=== PATIENT | male | born 1930 | race Caucasian/White ===

== ENCOUNTER → 2017-07-09 | Outpatient (CLI) | payer MEDICARE ==
[2017-07-09 11:34] LABS: EKG EKG PERFORMED
[2017-07-09 11:45] LABS: Appearance,Urine Clear (Clear); Bilirubin,Urine Negative (Negative); Glucose,Urine (UA) Negative (Negative); Ketones,Urine Negative (Negative); Leukocyte Esterase,Urine Negative (Negative); Nitrite,Urine Negative (Negative); Protein,Urine Negative (Negative); Specific Gravity,Urine 1.014 (1.001-1.035); UA Billing (MACRO vs. MICRO) CHEM; Urobilinogen,Urine <2.0 mg/dL (<2.0)
[2017-07-09 11:46] LABS: CHCM 32.7; HCT 42.1 % (39.0-53.0); HDW 2.23; HGB 13.6 gm/dL (13.0-17.5); MCH 30.8 pg (25.0-35.0); MCHC 32.3 g/dL (31.0-37.0); MCV 95.3 fL (80.0-100.0); Mean Platelet Volume 7.4; RBC 4.42 m/uL (4.30-5.90); RDW 12.7 % (11.5-15.5); WBC 6.8 k/uL (3.8-10.6)
[2017-07-09 11:59] LABS: ALT 24 U/L (21-72); AST 20 U/L (17-59); Alkaline Phosphatase 81 U/L (38-126); Anion Gap 11 mmol/L; Blood Urea Nitrogen 20 mg/dL (9-20); Calcium 9.5 mg/dL (8.4-10.2); Carbon Dioxide 26 mmol/L (22-30); Chloride 103 mmol/L (98-107); Glucose 134 mg/dL (74-99); Non-African American GFR(MDRD) 52 (>60 ml/min/1.73 sqM); Potassium 4.3 mmol/L (3.5-5.1); Sodium 140 mmol/L (137-145); Total Bilirubin 0.6 mg/dL (0.2-1.3)
[2017-07-09 12:26] LABS: INR 1.1 (<1.2); Partial Thromboplastin Time 25.2 sec (22.0-30.0); Prothrombin Time 11.1 sec (9.0-12.0)
== END | disposition home or self-care (01) ==
LOC: LABPAT 10:54
PROVIDERS: ATTEND Orthopaedic Surgery
DX: Z01.810 Encounter for preprocedural cardiovascular examination (principal); Z01.812 Encounter for preprocedural laboratory examination
CPT/HCPCS: 80053; 81003; 85027; 85610; 85730; 87070; 93005

== ENCOUNTER 2018-06-11 10:45 | Inpatient (IN) | payer MEDICARE ==
[2018-06-11] MEDS ORDERED: SODIUM CHLORIDE 0.9% 500 ML 500 ML IV STA (11:34)
--- NOTE | 2018-06-11 11:43 | ED ---
General Adult HPI - General Chief complaint: Syncope Stated complaint: near syncope Time Seen by Provider: 06/11/18 11:10 Source: patient, RN notes reviewed Mode of arrival: EMS Limitations: no limitations - History of Present Illness Initial comments: This is an 87-year-old male who presents emergency Department for generalized weakness per patient states he was sitting at the table got up after eating and became very weak and he needed to hold onto the counter. Patient states he sat down and felt better and he got up again and felt weak like he was given a fall over and he slid slowly to the ground without injury. Patient states he got in the ambulance and started feeling better immediately and currently he feels back to his baseline. Patient states once he got to the emergency department large bowel movement and has no complaints at this time. At no time did patient have any shortness of breath difficulty breathing or chest pain. Patient denies any palpitation. Patient denies any recent fever chills or cough. Patient denies any headache patient denies numbness weakness. Patient denies abdominal pain patient denies nausea vomiting diarrhea. - Related Data Home Medications Medication Instructions Recorded Confirmed Aspirin EC [Ecotrin] 81 mg PO HS 02/03/15 06/11/18 Furosemide [Lasix] 20 mg PO DAILY 02/03/15 06/11/18 Ranitidine HCl [Zantac] 150 mg PO BID 02/03/15 06/11/18 Levothyroxine Sodium [Synthroid] 125 mcg PO DAILY 07/17/17 06/11/18 Verapamil HCl [Verapamil ER] 240 mg PO BID 07/17/17 06/11/18 Allergies Allergy/AdvReac Type Severity Reaction Status Date / Time No Known Allergies Allergy Verified 06/11/18 11:40 Review of Systems ROS Statement: Those systems with pertinent positive or pertinent negative responses have been documented in the HPI. ROS Other: All systems not noted in ROS Statement are negative. Past Medical History Past Medical History: GERD/Reflux, Hyperlipidemia, Hypertension, Osteoarthritis (OA), Prostate Disorder, Thyroid Disorder Additional Past Medical History / Comment(s): hx prostate cancer, hx skin cancer History of Any Multi-Drug Resistant Organisms: None Reported Past Surgical History: Prostate Surgery, Tonsillectomy Additional Past Surgical History / Comment(s): skin cancer removed from back, shelley cataracts Past Anesthesia/Blood Transfusion Reactions: No Reported Reaction Past Psychological History: No Psychological Hx Reported Smoking Status: Never smoker Past Alcohol Use History: Occasional Past Drug Use History: None Reported - Past Family History Mother Family Medical History: No Reported History General Exam - General Exam Comments Initial Comments: GENERAL: Patient is well-developed and well-nourished. Patient is nontoxic and well- hydrated and is in no acute distress. ENT: Neck is soft and supple. No significant lymphadenopathy is noted. Oropharynx is clear. Moist mucous membranes. Neck has full range of motion without eliciting any pain. EYES: The sclera were anicteric and conjunctiva were pink and moist. Extraocular movements were intact and pupils were equal round and reactive to light. Eyelids were unremarkable. PULMONARY: Unlabored respirations. Good breath sounds bilaterally. No audible rales rhonchi or wheezing was noted. CARDIOVASCULAR: There is a regular rate and rhythm without any murmurs gallops or rubs. ABDOMEN: Soft and nontender with normal bowel sounds. No palpable organomegaly was noted. There is no palpable pulsatile mass. SKIN: Skin is clear with no lesions or rashes and otherwise unremarkable. NEUROLOGIC: Patient is alert and oriented x3. Cranial nerves II through XII are grossly intact. Motor and sensory are also intact. Normal speech, volume and content. Symmetrical smile. MUSCULOSKELETAL: Normal extremities with adequate strength and full range of motion. LYMPHATICS: No significant lymphadenopathy is noted PSYCHIATRIC: Normal psychiatric evaluation. Normal interpersonal interactions appears functionally intact in deals appropriately with others. No signs of depression. No signs of anxiety. Limitations: no limitations Course Vital Signs 06/11/18 06/11/18 11:09 12:34 Temperature 98.8 F Pulse Rate 86 Respiratory 18 Rate Blood Pressure 136/74 Blood Pressure 134/93 [Right Arm Sitting] Blood Pressure 136/83 [Right Arm Standing] Blood Pressure 139/86 [Right Arm Supine] O2 Sat by Pulse 94 L Oximetry Medical Decision Making - Medical Decision Making EKG shows sinus rhythm at 90 bpm NC interval is 342 QRS is 94 QT interval 356 QT intervals 435. Patient's EKG shows no ST segment elevation or depression or T wave abnormalities are noted. Patient's troponin was elevated so I started the patient on heparin gave the patient Nitropaste and gave the patient aspirin. I spoke with Dr. Milton and he agreed to admit the patient admitted the patient I consult cardiology I spoke with cardiology and they were in agreement with the current plan. - Lab Data Result diagrams: 06/11/18 12:20 06/11/18 12:20 Lab Results 06/11/18 06/11/18 06/11/18 Range/Units 12:20 12:20 12:20 WBC 7.4 (3.8-10.6) k/uL RBC 4.52 (4.30-5.90) m/uL Hgb 13.9 (13.0-17.5) gm/dL Hct 42.1 (39.0-53.0) % MCV 93.1 (80.0-100.0) fL MCH 30.7 (25.0-35.0) pg MCHC 32.9 (31.0-37.0) g/dL RDW 13.1 (11.5-15.5) % Plt Count 164 (150-450) k/uL Neutrophils % 78 % Lymphocytes % 14 % Monocytes % 6 % Eosinophils % 1 % Basophils % 1 % Neutrophils # 5.8 (1.3-7.7) k/uL Lymphocytes # 1.1 (1.0-4.8) k/uL Monocytes # 0.4 (0-1.0) k/uL Eosinophils # 0.1 (0-0.7) k/uL Basophils # 0.0 (0-0.2) k/uL PT (9.0-12.0) sec INR (<1.2) APTT (22.0-30.0) sec Sodium 141 (137-145) mmol/L Potassium 4.3 (3.5-5.1) mmol/L Chloride 104 (98-107) mmol/L Carbon Dioxide 28 (22-30) mmol/L Anion Gap 9 mmol/L BUN 18 (9-20) mg/dL Creatinine 1.23 (0.66-1.25) mg/dL Est GFR (CKD-EPI)AfAm 61 (>60 ml/min/1.73 sqM) Est GFR (CKD-EPI)NonAf 53 (>60 ml/min/1.73 sqM) Glucose 147 H (74-99) mg/dL Calcium 9.2 (8.4-10.2) mg/dL Magnesium 2.2 (1.6-2.3) mg/dL Total Bilirubin 0.6 (0.2-1.3) mg/dL AST 23 (17-59) U/L ALT 16 L (21-72) U/L Alkaline Phosphatase 78 (38-126) U/L Total Creatine Kinase 67 (55-170) U/L CK-MB (CK-2) 2.0 (0.0-2.4) ng/mL CK-MB (CK-2) Rel Index 3.0 Troponin I 0.270 H* (0.000-0.034) ng/mL Total Protein 7.2 (6.3-8.2) g/dL Albumin 3.9 (3.5-5.0) g/dL 06/11/18 Range/Units 12:20 WBC (3.8-10.6) k/uL RBC (4.30-5.90) m/uL Hgb (13.0-17.5) gm/dL Hct (39.0-53.0) % MCV (80.0-100.0) fL MCH (25.0-35.0) pg MCHC (31.0-37.0) g/dL RDW (11.5-15.5) % Plt Count (150-450) k/uL Neutrophils % % Lymphocytes % % Monocytes % % Eosinophils % % Basophils % % Neutrophils # (1.3-7.7) k/uL Lymphocytes # (1.0-4.8) k/uL Monocytes # (0-1.0) k/uL Eosinophils # (0-0.7) k/uL Basophils # (0-0.2) k/uL PT 10.7 (9.0-12.0) sec INR 1.1 (<1.2) APTT 26.5 (22.0-30.0) sec Sodium (137-145) mmol/L Potassium (3.5-5.1) mmol/L Chloride (98-107) mmol/L Carbon Dioxide (22-30) mmol/L Anion Gap mmol/L BUN (9-20) mg/dL Creatinine (0.66-1.25) mg/dL Est GFR (CKD-EPI)AfAm (>60 ml/min/1.73 sqM) Est GFR (CKD-EPI)NonAf (>60 ml/min/1.73 sqM) Glucose (74-99) mg/dL Calcium (8.4-10.2) mg/dL Magnesium (1.6-2.3) mg/dL Total Bilirubin (0.2-1.3) mg/dL AST (17-59) U/L ALT (21-72) U/L Alkaline Phosphatase (38-126) U/L Total Creatine Kinase (55-170) U/L CK-MB (CK-2) (0.0-2.4) ng/mL CK-MB (CK-2) Rel Index Troponin I (0.000-0.034) ng/mL Total Protein (6.3-8.2) g/dL Albumin (3.5-5.0) g/dL Critical Care Time Critical Care Time: Yes Total Critical Care Time: 35 Disposition Clinical Impression: Near syncope, Non-STEMI (non-ST elevated myocardial infarction) Disposition: ADMITTED IP TO THIS HOSP Referrals: Aly Colmenares MD [Primary Care Provider] - 1-2 days Time of Disposition: 13:58
[2018-06-11 12:35] LABS: Basophils % (A) 1 %; Eosinophils # (A) 0.1 k/uL (0-0.7); Eosinophils % (A) 1 %; HCT 42.1 % (39.0-53.0); HGB 13.9 gm/dL (13.0-17.5); Lymphocytes # (A) 1.1 k/uL (1.0-4.8); Lymphocytes % (A) 14 %; MCH 30.7 pg (25.0-35.0); MCHC 32.9 g/dL (31.0-37.0); MCV 93.1 fL (80.0-100.0); Mean Platelet Volume 7.6; Monocytes # (A) 0.4 k/uL (0-1.0); Monocytes % (A) 6 %; Neutrophils # (A) 5.8 k/uL (1.3-7.7); Neutrophils % (A) 78 %; Platelet Count 164 k/uL (150-450); RBC 4.52 m/uL (4.30-5.90); RDW 13.1 % (11.5-15.5); WBC 7.4 k/uL (3.8-10.6)
[2018-06-11 12:43] LABS: Albumin 3.9 g/dL (3.5-5.0); Calcium 9.2 mg/dL (8.4-10.2); Magnesium 2.2 mg/dL (1.6-2.3); Potassium 4.3 mmol/L (3.5-5.1); Total Bilirubin 0.6 mg/dL (0.2-1.3); Total Protein 7.2 g/dL (6.3-8.2)
--- NOTE | 2018-06-11 12:56 | XR ---
EXAMINATION TYPE: XR chest 2V DATE OF EXAM: 06/11/2018 COMPARISON: 02/03/2015 HISTORY: Dizziness, chest pain and syncope TECHNIQUE: Frontal and lateral views of the chest are obtained. FINDINGS: There is no focal air space opacity, pleural effusion, or pneumothorax seen. The cardiac silhouette size is within normal limits. The osseous structures are intact. There is biapical pleur al-parenchymal thickening and biapical lucency suggesting mild emphysematous change. Mild bilateral g lenohumeral arthropathy is also seen. IMPRESSION: No acute cardiopulmonary process.
[2018-06-11 13:02] LABS: INR 1.1 (<1.2); Partial Thromboplastin Time 26.5 sec (22.0-30.0); Prothrombin Time 10.7 sec (9.0-12.0)
[2018-06-11 13:25] LABS: Troponin I 0.27 ng/mL (0.000-0.034)
[2018-06-11] MEDS ORDERED: HEPARIN SODIUM,PORCINE 5,000 UNIT/ML 1 ML VIAL IV ONE (13:52)
[2018-06-11] MEDS ORDERED: NITROGLYCERIN OINT 1 INCH/GM PACKET TOPICAL STA (13:53)
[2018-06-11] MEDS ORDERED: ASPIRIN 81 MG PO STA (13:53)
[2018-06-11] MEDS ORDERED: NITROGLYCERIN SL TABS 0.4 MG TAB SUBLINGUAL PRN (13:58)
[2018-06-11] MEDS ORDERED: HEPARIN SOD,PORK IN 0.45% NACL 25,000 UNIT in 0.45% NACL 1 500ML.BAG IV SCH (14:00)
--- NOTE | 2018-06-11 15:37 | P.CRDCN ---
History of Present Illness Consult date: 06/11/18 Requesting physician: Aly Colmenares Consult reason: sycope Chief complaint: syncope History of present illness: This is a pleasant 87-year-old gentleman with history of hypertension , hyperlipidemia, nonsmoker,family history of premature coronary artery disease in his brother who has a coronary stent, resented to the hospital following a syncopal episode. According to the patient, he was standing at the sink, holding onto it tightly because he was extremely lightheaded and felt as though he would pass out. According to the , at that same time he was notably short of breath as well. Denies having any chest discomfort at the time. Shortly thereafter this patient did fall down to the ground, his was helping him and they actually both fell down to the ground. She states that when he landed his eyes were closed and he was unresponsive for a period of time.chest x-ray did not reveal any acute cardiopulmonary process.EKG shows a normal sinus rhythm with first-degree AV block and occasional PVC, nonspecific ST-T wave changes.Blood pressure on arrival 136/70, orthostatics were obtained which came back to be negative. Heart rate in the 80s, temperature 98.8, he is 94% on room air.White blood cell count 7.4, hemoglobin 13.9, platelet count 164. Sodium 141, potassium 4.3, BUN 18, creatinine 1.2.troponin 0.270.at the time of my examination, patient feels well, denies any chest pain, no difficulty in breathing, no dizziness or lightheadedness. Patient states overall he's physically active, has not taken any recent long trips and has not had any recent surgeries. Past Medical History Past Medical History: GERD/Reflux, Hyperlipidemia, Hypertension, Osteoarthritis (OA), Prostate Disorder, Thyroid Disorder Additional Past Medical History / Comment(s): hx prostate cancer, hx skin cancer. pt stated has has a pne vaccine,shingles vaccine and hepatitis A vaccine but not sure of dates,racebook writer not abnle to verify date at time of admit. History of Any Multi-Drug Resistant Organisms: None Reported Past Surgical History: Prostate Surgery, Tonsillectomy Additional Past Surgical History / Comment(s): skin cancer removed from back, shelley cataracts removed-lens implants. prostatectomy,total lt hip arthroplasty Past Anesthesia/Blood Transfusion Reactions: No Reported Reaction Smoking Status: Never smoker - Past Family History Mother Family Medical History: Osteoarthritis (OA) Additional Family Medical History / Comment(s): at age 92"old age" Father Additional Family Medical History / Comment(s): dad was an alcoholic he left home when pt was only 3 and a half years old Medications and Allergies Home Medications Medication Instructions Recorded Confirmed Type Aspirin EC [Ecotrin] 81 mg PO HS 02/03/15 06/11/18 History Furosemide [Lasix] 20 mg PO DAILY 02/03/15 06/11/18 History Ranitidine HCl [Zantac] 150 mg PO BID 02/03/15 06/11/18 History Levothyroxine Sodium [Synthroid] 125 mcg PO DAILY 07/17/17 06/11/18 History Verapamil HCl [Verapamil ER] 240 mg PO BID 07/17/17 06/11/18 History Allergies Allergy/AdvReac Type Severity Reaction Status Date / Time No Known Allergies Allergy Verified 06/11/18 11:40 Physical Exam Vitals: Vital Signs Temp Pulse Resp BP BP BP BP 06/11/18 12:34 134/93 136/83 139/86 06/11/18 11:09 98.8 F 86 18 136/74 Pulse Ox 06/11/18 12:34 06/11/18 11:09 94 L Intake and Output 06/11/18 06/11/18 06/11/18 06:59 14:59 22:59 Other: Weight 79.379 kg PHYSICAL EXAMINATION: GENERAL:87-year-old gentleman in no acute distress at the time of my examination HEENT: Head is atraumatic, normocephalic. Pupils equal, round. Sclera anicteric. Conjunctiva are clear. Mucous membranes of the mouth are moist. Neck is supple. There is no elevated jugular venous pressure.no carotid bruit is heard. HEART EXAMINATION: [Heart S1, S2 systolic murmur is heard.] CHEST EXAMINATION:[ Lungs are clear to auscultation and precussion. No chest wall tenderness is noted on palpation or with deep breathing.] ABDOMEN: [ Soft, nontender. Bowel sounds are heard. No organomegaly noted]. EXTREMITIES:[ 2+ peripheral pulses with no evidence of peripheral edema and no calf tenderness noted]. NEUROLOGIC [patient is awake, alert and oriented X3.] . Results 06/11/18 12:20 06/11/18 12:20 Cardiac Enzymes 06/11/18 06/11/18 Range/Units 12:20 12:20 AST 23 (17-59) U/L CK-MB (CK-2) 2.0 (0.0-2.4) ng/mL Troponin I 0.270 H* (0.000-0.034) ng/mL Coagulation 06/11/18 Range/Units 12:20 PT 10.7 (9.0-12.0) sec APTT 26.5 (22.0-30.0) sec CBC 06/11/18 Range/Units 12:20 WBC 7.4 (3.8-10.6) k/uL RBC 4.52 (4.30-5.90) m/uL Hgb 13.9 (13.0-17.5) gm/dL Hct 42.1 (39.0-53.0) % Plt Count 164 (150-450) k/uL Comprehensive Metabolic Panel 06/11/18 Range/Units 12:20 Sodium 141 (137-145) mmol/L Potassium 4.3 (3.5-5.1) mmol/L Chloride 104 (98-107) mmol/L Carbon Dioxide 28 (22-30) mmol/L BUN 18 (9-20) mg/dL Creatinine 1.23 (0.66-1.25) mg/dL Glucose 147 H (74-99) mg/dL Calcium 9.2 (8.4-10.2) mg/dL AST 23 (17-59) U/L ALT 16 L (21-72) U/L Alkaline Phosphatase 78 (38-126) U/L Total Protein 7.2 (6.3-8.2) g/dL Albumin 3.9 (3.5-5.0) g/dL Current Medications Generic Name Dose Route Start Last Admin Trade Name Freq PRN Reason Stop Dose Admin Aspirin 325 mg 06/12/18 09:00 Aspirin PO DAILY [facility] Heparin Sodium/Sodium Chloride 500 mls @ 19.05 mls/hr 06/11/18 14:00 25,000 unit/ Sodium Chloride IV .Q24H [facility] Protocol 12 UNITS/KG/HR Nitroglycerin 1 inch 06/11/18 18:00 Nitro-Bid Oint TOPICAL Q6HR [facility] Nitroglycerin 0.4 mg 06/11/18 13:58 Nitrostat SUBLINGUAL Q5M PRN Chest Pain Intake and Output 06/11/18 06/11/18 06/11/18 06:59 14:59 22:59 Other: Weight 79.379 kg Patient Weight 06/12/18 06:59 Weight 79.379 kg 06/11/18 12:20 06/11/18 12:20 EKG Interpretations (text) EKG shows normal sinus rhythm with long first-degree AV block and occasional PVC. Assessment and Plan Plan: Assessment and plan #1 syncope, rule out cardiac causes. EKG shows normal sinus rhythm with long first-degree AV block. Occasional PVC. #2 hypertension #3 hyperlipidemia #4 family history of premature coronary artery disease in his brother #5 hypothyroidism #6 abnormal troponin Plan We'll check a thyroid level, obtain echocardiogram with Doppler study. Continue to monitor orthostatics. Obtain two subsequent troponins. Continue to monitor for any significant tachycardia or bradycardia arrhythmias. We will also decrease the dose of verapamil. Obtain d-dimer.Further recommendations to follow. DNP note has been reviewed, I agree with a documented findings and plan of care. Patient was seen and examined.
[2018-06-11] MEDS: NITROGLYCERIN OINT 1 INCH/GM PACKET TOPICAL SCH (17:20)
[2018-06-11 19:19] LABS: Creatine Kinase MB 2.8 ng/mL (0.0-2.4)
[2018-06-11 19:20] LABS: Troponin I 0.675 ng/mL (0.000-0.034)
--- NOTE | 2018-06-11 19:55 | CT ---
EXAMINATION TYPE: CT chest angio for PE DATE OF EXAM: 06/11/2018 COMPARISON: None. HISTORY: Elevated d-dimer. CT DLP: 190.7 mGycm. Automated exposure control for dose reduction was used. CONTRAST: CT Chest for pulmonary embolism performed with with IV Contrast, patient injected with 80 m L of Isovue 370. FINDINGS: MEDIASTINUM: There are large bilateral numerous filling defects throughout the right and left pulmona ry arterial lobar and segmental branches, consistent with large bilateral ovarian emboli. The right v entricle is larger in volume than the left ventricle, suggesting right heart strain. 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 Mi ld cardiomegaly is noted. No pericardial effusion. LUNGS AND PLEURAL SPACES AND AIRWAYS: The lungs show nonspecific multifocal subcentimeter pulmonary n odules and biapical ill-defined added opacities. There are no available CT studies with which to comp are. These pulmonary findings can be further characterized using an outside comparison CT is availabl e. There is no pulmonary edema or candidate for pneumonia. No major atelectasis. Pleural spaces are n egative. Airways are clear. BONES AND EXTRATHORACIC SOFT TISSUES: No additional significant abnormality is seen. IMPRESSION: 1) LARGE BILATERAL PULMONARY EMBOLI WITH EVIDENCE OF RIGHT HEART STRAIN. Results communicated at 7:4 5 PM with the patient's nurse Elise and Dr. Landin. 2) Ascending Aorta Aneurysmal Dilation. 3) Multifocal Scattered Pulmonary Findings, Appearing Chronic.
[2018-06-11] MEDS ORDERED: RIVAROXABAN 15 MG TAB PO SCH (20:00)
[2018-06-11] MEDS: HEPARIN SOD,PORK IN 0.45% NACL 25,000 UNIT in 0.45% NACL 1 500ML.BAG IV SCH (20:20)
[2018-06-11 23:25] LABS: Cholesterol 202 mg/dL (<200); HDL Cholesterol 54 mg/dL (40-60); LDL Cholesterol,Calculated 119 mg/dL (0-99); Triglycerides 147 mg/dL (<150)
[2018-06-12 01:25] LABS: Creatine Kinase MB 2.1 ng/mL (0.0-2.4)
[2018-06-12 01:34] LABS: Troponin I 0.37 ng/mL (0.000-0.034)
[2018-06-12] MEDS: NITROGLYCERIN OINT 1 INCH/GM PACKET TOPICAL SCH ×2 (02:50→06:04)
[2018-06-12] MEDS ORDERED: HEPARIN SODIUM,PORCINE 5,000 UNIT/ML 1 ML VIAL IV PRN (08:49)
[2018-06-12] MEDS: ASPIRIN 325 MG TAB PO SCH (08:58)
--- NOTE | 2018-06-12 08:58 | US ---
"EXAMINATION TYPE: US venous doppler duplex LE DATE OF EXAM: 06/12/2018 8:31 AM COMPARISON: NONE CLINICAL HISTORY: r/o dvt. Patient with known pulmonary embolism. SIDE PERFORMED: Bilateral TECHNIQUE: The lower extremity deep venous system is examined utilizing real time linear array sonog jackie with graded compression, doppler sonography and color-flow sonography. VESSELS IMAGED: External Iliac Vein (EIV) Common Femoral Vein Deep Femoral Vein Greater Saphenous Vein * Femoral Vein Popliteal Vein Small Saphenous Vein * Proximal Calf Veins (* superficial vessels) 06/12/18 Pt has PE bilaterally and is being treated currently with heparin drip. Right Leg: Positive for DVT Left Leg: Negative for DVT There are low-level internal echoes in the popliteal vein on the right, lack of complete compressibil ity with some possible minimal flow on color Doppler. IMPRESSION: Findings compatible with deep venous thrombosis right popliteal vein. A Yellow level critical message alert has been initiated for Aly Colmenares MD via the [facility] | Critical Results System on 06/12/2018 8:55 AM. This message alert has been sent to Shyann Colmenares MD via the preferences provided by the clinician for the receipt of Radiology Critical Findings. Message ID [id number]."
--- NOTE | 2018-06-12 11:01 | ECHOF ---
Referral Reason:abn trop MEASUREMENTS -------- HEIGHT: 177.8 cm WEIGHT: 79.4 kg BP: 134/93 RVIDd: 2.9 cm (< 3.3) IVSd: 0.8 cm (0.6 - 1.1) LVIDd: 3.9 cm (3.9 - 5.3) LVPWd: 1.1 cm (0.6 - 1.1) IVSs: 1.3 cm LVIDs: 3.0 cm LVPWs: 1.2 cm LAESV Index (A-L): 17.59 ml/m Ao Diam: 3.5 cm (2.0 - 3.7) AV Cusp: 1.4 cm (1.5 - 2.6) LA Diam: 3.4 cm (2.7 - 3.8) MV E Ok: 1.38 m/s MV DecT: 167 ms MV A Ok: 0.81 m/s MV E/A Ratio: 1.71 AR PHT: 624 ms RAP: 5.00 mmHg RVSP: 35.58 mmHg FINDINGS -------- Atrial fibrillation. This was a technically good study. The left ventricular size is normal. Left ventricular wall thickness is normal. Overall left vent ricular systolic function is low-normal with, an EF between 50 - 55 %. . The right ventricle is mild to moderately enlarged. Normal LA size by volume 22+/-6 ml/m2. The right atrium is mildly enlarged. Aortic valve is trileaflet and is mildly thickened. There is mild aortic regurgitation. There is no evidence of aortic stenosis. The mitral valve leaflets are mildly thickened. Mild mitral annular calcification present. Mild m itral regurgitation is present. Mild tricuspid regurgitation present. There is borderline pulmonary hypertension. The right ventr icular systolic pressure, as measured by Doppler, is 35.58mmHg. The pulmonic valve was not well visualized. The aortic root size is normal. Normal inferior vena cava with normal inspiratory collapse consistent with estimated right atrial pre ssure of 5 mmHg. There is no pericardial effusion. CONCLUSIONS -------- 1. Atrial fibrillation. 2. This was a technically good study. 3. The left ventricular size is normal. 4. Left ventricular wall thickness is normal. 5. Overall left ventricular systolic function is low-normal with, an EF between 50 - 55 %. 6. The right ventricle is mild to moderately enlarged. 7. Normal LA size by volume 22+/-6 ml/m2. 8. The right atrium is mildly enlarged. 9. Aortic valve is trileaflet and is mildly thickened. 10. There is mild aortic regurgitation. 11. The mitral valve leaflets are mildly thickened. 12. Mild mitral annular calcification present. 13. Mild mitral regurgitation is present. 14. Mild tricuspid regurgitation present. 15. There is borderline pulmonary hypertension. 16. The right ventricular systolic pressure, as measured by Doppler, is 35.58mmHg. 17. The pulmonic valve was not well visualized. 18. The aortic root size is normal. 19. There is no pericardial effusion. AUTOMATIC SCREWMAKER: Adolfo Mack RDCS
[2018-06-12] MEDS: HEPARIN SOD,PORK IN 0.45% NACL 25,000 UNIT in 0.45% NACL 1 500ML.BAG IV SCH (14:02)
--- NOTE | 2018-06-12 14:37 | P.PN ---
Subjective Progress Note Date: 06/12/18 Principal diagnosis: BiLateral pulmonary embolism This is a pleasant 87-year-old gentleman with history of hypertension , hyperlipidemia, nonsmoker,family history of premature coronary artery disease in his brother who has a coronary stent, resented to the hospital following a syncopal episode. According to the patient, he was standing at the sink, holding onto it tightly because he was extremely lightheaded and felt as though he would pass out. According to the , at that same time he was notably short of breath as well. Denies having any chest discomfort at the time. Shortly thereafter this patient did fall down to the ground, his was helping him and they actually both fell down to the ground. She states that when he landed his eyes were closed and he was unresponsive for a period of time.chest x-ray did not reveal any acute cardiopulmonary process.EKG shows a normal sinus rhythm with first-degree AV block and occasional PVC, nonspecific ST-T wave changes.Blood pressure on arrival 136/70, orthostatics were obtained which came back to be negative. Heart rate in the 80s, temperature 98.8, he is 94% on room air.White blood cell count 7.4, hemoglobin 13.9, platelet count 164. Sodium 141, potassium 4.3, BUN 18, creatinine 1.2.troponin 0.270.at the time of my examination, patient feels well, denies any chest pain, no difficulty in breathing, no dizziness or lightheadedness. Patient states overall he's physically active, has not taken any recent long trips and has not had any recent surgeries. 06/12/2018 D-dimer yesterday evening came back at 20.03. For that reason a CTA of the chest was performed which revealed large bilateral pulmonary emboli with evidence of right heart strain. Descending aorta aneurysmal dilated dictation noted. Venous duplex was ordered this morning, findings compatible with DVT in the right popliteal vein. Echocardiogram with Doppler study was performed which revealed an ejection fraction of 50-55%. Borderline pulmonary hypertension, RVSP measured at 35.5. No pericardial effusion. Blood pressure 104/60 with a heart rate in the 60s today, 98% on room air. Breathing is stable , he denies any chest discomfort, dizziness or lightheadedness today. He is noted on the monitor and first-degree heart block intermittently and winky block. He was also noted to have 1 pause of approximately 2 seconds noted on the monitor. Objective - Vital Signs Vital signs: Vital Signs Temp 97.4 F L 06/12/18 09:00 Pulse 54 L 06/12/18 09:00 Resp 16 06/12/18 09:00 BP 111/58 06/12/18 09:00 Pulse Ox 98 06/12/18 09:00 Intake & Output 06/11/18 06/12/18 06/12/18 18:59 06:59 18:59 Intake Total 559.044 490.613 Output Total 750 Balance -190.956 490.613 Weight 79.379 kg 76.5 kg Intake: Intake, IV Titration 79.044 250.613 Amount Heparin Sod,Pork in 0.45% 79.044 250.613 NaCl 25,000 unit In 0.45 % NaCl 1 500ml.bag @ 18 UNITS/KG/HR 28.57 mls/hr IV .[id number] [facility] Rx#: [id number] Oral 480 240 Output: Urine 750 Other: Voiding Method Toilet Urinal Diaper Incontinent # Voids 1 - Exam PHYSICAL EXAMINATION: GENERAL:87-year-old gentleman in no acute distress at the time of my examination HEENT: Head is atraumatic, normocephalic. Pupils equal, round. Sclera anicteric. Conjunctiva are clear. Mucous membranes of the mouth are moist. Neck is supple. There is no elevated jugular venous pressure.no carotid bruit is heard. HEART EXAMINATION: [Heart S1, S2 systolic murmur is heard.] CHEST EXAMINATION:[ Lungs are clear to auscultation and precussion. No chest wall tenderness is noted on palpation or with deep breathing.] ABDOMEN: [ Soft, nontender. Bowel sounds are heard. No organomegaly noted]. EXTREMITIES:[ 2+ peripheral pulses with no evidence of peripheral edema and no calf tenderness noted]. NEUROLOGIC [patient is awake, alert and oriented X3. - Labs CBC & Chem 7: 06/11/18 12:20 06/11/18 12:20 Labs: Abnormal Lab Results - Last 24 Hours (Table) 06/11/18 06/11/18 06/11/18 Range/Units 12:20 12:20 12:20 APTT (22.0-30.0) sec D-Dimer 20.03 H (<0.60) mg/L FEU Total Creatine Kinase (55-170) U/L CK-MB (CK-2) (0.0-2.4) ng/mL Troponin I 0.270 H* (0.000-0.034) ng/mL Cholesterol (<200) mg/dL LDL Cholesterol, Calc (0-99) mg/dL TSH 0.077 L (0.465-4.680) mIU/L 06/11/18 06/11/18 06/11/18 Range/Units 12:20 18:28 21:39 APTT 82.3 H (22.0-30.0) sec D-Dimer (<0.60) mg/L FEU Total Creatine Kinase (55-170) U/L CK-MB (CK-2) 2.8 H (0.0-2.4) ng/mL Troponin I 0.675 H* (0.000-0.034) ng/mL Cholesterol 202 H (<200) mg/dL LDL Cholesterol, Calc 119 H (0-99) mg/dL TSH (0.465-4.680) mIU/L 06/12/18 06/12/18 Range/Units 00:32 07:37 APTT 30.3 H (22.0-30.0) sec D-Dimer (<0.60) mg/L FEU Total Creatine Kinase 53 L (55-170) U/L CK-MB (CK-2) (0.0-2.4) ng/mL Troponin I 0.370 H* (0.000-0.034) ng/mL Cholesterol (<200) mg/dL LDL Cholesterol, Calc (0-99) mg/dL TSH (0.465-4.680) mIU/L Assessment and Plan Plan: Assessment and plan #1 syncope, evidence of significant bilateral pulmonary embolism and right ventricular heart strain. #2 hypertension #3 hyperlipidemia #4 family history of premature coronary artery disease in his brother #5 hypothyroidism #6 abnormal troponin #7 sinus bradycardia with first-degree AV block and intermittent second-degree type I. Plan Patient is currently on high-intensity heparin therapeutic PTT, he also has evidence of a DVT in the right popliteal vein. Echocardiogram with Doppler study revealed an RVSP of 35, normal ejection fraction. TSH 0.77. Patient has been instructed to remain on bedrest for the next 24 hours, we'll continue IV heparin at high intensity for 24-48 hours and then initiate oral anticoagulation. DNP note has been reviewed, I agree with a documented findings and plan of care. Patient was seen and examined.
[2018-06-13] MEDS: LEVOTHYROXINE 125 MCG TAB PO SCH (05:46)
[2018-06-13] MEDS: ASPIRIN 325 MG TAB PO SCH (07:58)
[2018-06-13] MEDS: FAMOTIDINE 20 MG TAB PO SCH (07:58)
[2018-06-13] MEDS: HEPARIN SOD,PORK IN 0.45% NACL 25,000 UNIT in 0.45% NACL 1 500ML.BAG IV SCH (10:27)
--- NOTE | 2018-06-13 11:00 | DS ---
DISCHARGE SUMMARY CHIEF COMPLAINT: Chest pain, shortness of breath. HISTORY OF PRESENT ILLNESS/PHYSICAL EXAM: Details of this man's history and physical can be found in the initial workup. LABORATORY STUDIES: While he was in a hospital, he had laboratory studies, details of which can be found in the laboratory section of his chart. COURSE IN HOSPITAL: After admission, he was placed on bedrest and started on intravenous fluids and was found on a CTA to have bilateral pulmonary emboli. Started on heparin. He was dyspneic for the first 24 - 48 hours, but this began to improve. It is felt he could be discharged on 06/13 and he will go home on Xarelto 15 mg twice a day for 21 days. He will be seen in the office in a day or two. Will resume his usual medications. FINAL DIAGNOSES: 1. Bilateral pulmonary emboli. 2. History of hypertension. 3. History of carcinoma of the prostate. OPERATIONS: None. CONSULTATIONS: Cardiology. He is improved. MMODL / IJN: [id number] /
--- NOTE | 2018-06-13 11:21 | P.PN ---
Subjective Progress Note Date: 06/13/18 Principal diagnosis: BiLateral pulmonary embolism This is a pleasant 87-year-old gentleman with history of hypertension , hyperlipidemia, nonsmoker,family history of premature coronary artery disease in his brother who has a coronary stent, resented to the hospital following a syncopal episode. According to the patient, he was standing at the sink, holding onto it tightly because he was extremely lightheaded and felt as though he would pass out. According to the , at that same time he was notably short of breath as well. Denies having any chest discomfort at the time. Shortly thereafter this patient did fall down to the ground, his was helping him and they actually both fell down to the ground. She states that when he landed his eyes were closed and he was unresponsive for a period of time.chest x-ray did not reveal any acute cardiopulmonary process.EKG shows a normal sinus rhythm with first-degree AV block and occasional PVC, nonspecific ST-T wave changes.Blood pressure on arrival 136/70, orthostatics were obtained which came back to be negative. Heart rate in the 80s, temperature 98.8, he is 94% on room air.White blood cell count 7.4, hemoglobin 13.9, platelet count 164. Sodium 141, potassium 4.3, BUN 18, creatinine 1.2.troponin 0.270.at the time of my examination, patient feels well, denies any chest pain, no difficulty in breathing, no dizziness or lightheadedness. Patient states overall he's physically active, has not taken any recent long trips and has not had any recent surgeries. 06/12/2018 D-dimer yesterday evening came back at 20.03. For that reason a CTA of the chest was performed which revealed large bilateral pulmonary emboli with evidence of right heart strain. Descending aorta aneurysmal dilated dictation noted. Venous duplex was ordered this morning, findings compatible with DVT in the right popliteal vein. Echocardiogram with Doppler study was performed which revealed an ejection fraction of 50-55%. Borderline pulmonary hypertension, RVSP measured at 35.5. No pericardial effusion. Blood pressure 104/60 with a heart rate in the 60s today, 98% on room air. Breathing is stable , he denies any chest discomfort, dizziness or lightheadedness today. He is noted on the monitor and first-degree heart block intermittently and winky block. He was also noted to have 1 pause of approximately 2 seconds noted on the monitor. 06/13/2018 Patient was seen and examined this morning, doing well, hemodynamically he is stable. Blood pressure 138/60 with a heart rate in the 60s, 97% on 2 L of oxygen. He has been on bedrest, this morning got up to the bathroom, walked back to the bed and was mildly short of breath. He was sitting up in a chair at the time of my examination. Continues to be on IV heparin. Was switched over to Xarelto this morning by primary care doctor. After noon today, we will have the patient up ambulating, monitoring his oxygen saturations closely. Plan on discharge home in 24 hours if stable. Objective - Vital Signs Vital signs: Vital Signs Temp 96.7 F L 06/13/18 07:59 Pulse 76 06/13/18 07:59 Resp 16 06/13/18 07:59 BP 158/73 06/13/18 07:59 Pulse Ox 98 06/13/18 07:59 Intake & Output 06/12/18 06/13/18 06/13/18 18:59 06:59 18:59 Intake Total 1188.101 672.907 240 Output Total 220 750 Balance 968.101 -77.093 240 Weight 77.1 kg Intake: Intake, IV Titration 468.101 192.907 Amount Heparin Sod,Pork in 0.45% 468.101 192.907 NaCl 25,000 unit In 0.45 % NaCl 1 500ml.bag @ 18 UNITS/KG/HR 28.57 mls/hr IV .[id number] [facility] Rx#: [id number] Oral 720 480 240 Output: Urine 220 750 Other: Voiding Method Toilet Urinal Diaper Incontinent # Voids 1 - Exam PHYSICAL EXAMINATION: GENERAL:87-year-old gentleman in no acute distress at the time of my examination HEENT: Head is atraumatic, normocephalic. Pupils equal, round. Sclera anicteric. Conjunctiva are clear. Mucous membranes of the mouth are moist. Neck is supple. There is no elevated jugular venous pressure.no carotid bruit is heard. HEART EXAMINATION: [Heart S1, S2 systolic murmur is heard.] CHEST EXAMINATION:[ Lungs are clear to auscultation and precussion. No chest wall tenderness is noted on palpation or with deep breathing.] ABDOMEN: [ Soft, nontender. Bowel sounds are heard. No organomegaly noted]. EXTREMITIES:[ 2+ peripheral pulses with no evidence of peripheral edema and no calf tenderness noted]. NEUROLOGIC [patient is awake, alert and oriented X3. - Labs CBC & Chem 7: 06/11/18 12:20 06/11/18 12:20 Labs: Abnormal Lab Results - Last 24 Hours (Table) 06/12/18 06/13/18 06/13/18 Range/Units 14:27 00:20 07:55 APTT >200.0 H* 177.3 H* 115.5 H* (22.0-30.0) sec Assessment and Plan Plan: Assessment and plan #1 syncope, evidence of significant bilateral pulmonary embolism and right ventricular heart strain. #2 hypertension #3 hyperlipidemia #4 family history of premature coronary artery disease in his brother #5 hypothyroidism #6 abnormal troponin #7 sinus bradycardia with first-degree AV block and intermittent second-degree type I. #8 right popliteal DVT Plan IV heparin has been discontinued this morning and patient was initiated on Xarelto per PE protocol by primary care. He has not yet been up ambulating, he' s been encouraged today to be up ambulating in the hallway, we will monitor his oxygen saturations closely. If stable he may be able to be discharged home in 24 hours if okay with the primary. DNP note has been reviewed, I agree with a documented findings and plan of care. Patient was seen and examined.
[2018-06-13] MEDS: RIVAROXABAN 15 MG TAB PO SCH (17:23)
--- NOTE | 2018-06-13 17:33 | HP ---
HISTORY AND PHYSICAL CHIEF COMPLAINT: Chest pain, shortness of breath. HISTORY OF PRESENT ILLNESS: This is another admission for this 87-year-old healthy white male. He has a history of mild hypertension and he had an open prostatectomy many many years ago without recurrence. He presented to the emergency room with some vague anterior chest pain and slightly elevated troponin and was admitted. He subsequently had a D-dimer obtained which was elevated and had a positive CTA with bilateral pulmonary emboli. REVIEW OF SYSTEMS: He has had no hemoptysis, chest pain, orthopnea, PND, swelling in either leg, etc. Past medical history, family history, and personal and social histories are unremarkable and noncontributory otherwise. He does not smoke. He has been noticing a little bit of shortness of breath working around the house. PHYSICAL EXAMINATION: Blood pressure is 138/85 with a pulse of 84, respirations of 34, and he is afebrile. In general he appeared to be well developed, well nourished, in no acute distress and very well preserved for his age. Head, ears, eyes, nose, mouth and throat were normal. Neck veins were not distended. Thyroid was not enlarged. Chest was clear. There were no rubs. Cardiac exam was normal sinus rhythm and there were no no murmurs or extra sounds. Abdomen was soft, nontender. Extremities were normal. There was no swelling in either leg and calves were soft and Homans negative. IMPRESSION: 1. Bilateral pulmonary emboli. 2. History of carcinoma of the prostate. 3. Hypertension. PLAN: 1. Bed rest. 2. IV fluids. 3. Anticoagulate. 4. Nasal oxygen. MMODL / IJN: [id number] /
[2018-06-14] MEDS: LEVOTHYROXINE 125 MCG TAB PO SCH (06:26)
[2018-06-14] MEDS: RIVAROXABAN 15 MG TAB PO SCH (06:26)
[2018-06-14 08:05] VITALS: TEMP 96.8
[2018-06-14] MEDS: FAMOTIDINE 20 MG TAB PO SCH (08:07)
[2018-06-14] MEDS: IOPAMIDOL-300 CONTRAST 30 ML VIAL (ORAL USE) PO PRN ×2 (08:30→09:37)
[2018-06-14] MEDS ORDERED: ASPIRIN 81 MG PO SCH (09:00)
[2018-06-14 09:55] LABS: Potassium 4.6 mmol/L (3.5-5.1)
--- NOTE | 2018-06-14 12:11 | CT ---
EXAMINATION TYPE: CT abdomen pelvis wo/w con DATE OF EXAM: 06/14/2018 COMPARISON: CTA 06/11/2018 INDICATION: Unprovoked Bilateral PE DLP: 1020 mGycm, Automated exposure control for dose reduction was used. CONTRAST: 100 mL of Isovue 300. Study performed with Oral Contrast TECHNIQUE: Axial images were obtained from above the diaphragm to the pubic rami in the axial plane a t 5 mm thick sections. Reconstructed images are reviewed on the computer in the coronal plane. FINDINGS: Limited CT sections are obtained the lung bases. Some compressive atelectasis is within the dependen t portions of the lung bases. Couple small nodules may be at the posterior right lung base likely a 0 .3 cm nodule, series 9 image 9 and a 0.4 cm nodule, series 9 image 1.. Note is made of contrast with in the distal esophagus during the delayed images. CT ABDOMEN: Liver: Normal Spleen: Normal Pancreas: Atrophic Adrenal glands: The adrenal glands are normal. Gallbladder: Normal Kidneys: No masses are evident. No hydronephrosis is present. No cysts are present. There is a 0.8 cm calcification without obstruction in the mid to inferior pole right kidney. Aorta: Vascular calcification is within the aorta. Inferior vena cava: Normal. CT PELVIS: Pelvis is limited due to beam hardening artifact from a left hip prosthesis. Loops of bowel within the abdomen and pelvis are normal. There are loops of bowel which are incom pletely distended or lack oral contrast limiting their evaluation. Scattered diverticuli are present throughout the colon Appendix: Not visualized. No suspicious inflammatory changes or dilated tubular structures are eviden t. Urinary bladder: Decompressed with limited evaluation Genitourinary structures: Prostate is unremarkable Osseous structures: No suspicious lytic or sclerotic lesions. Facet degenerative changes are through the lumbar spine. Degenerative disc changes are through the lumbar spine. IMPRESSIONS: 1. Nonobstructing right renal stone. 2. Gastroesophageal reflux. 3. Small nodules may be at the posterior right lung base. These were not as apparent on the CTA and m ay be related atelectasis. Follow-up can be performed
--- NOTE | 2018-06-14 12:33 | P.PN ---
Subjective Progress Note Date: 06/14/18 Principal diagnosis: BiLateral pulmonary embolism This is a pleasant 87-year-old gentleman with history of hypertension , hyperlipidemia, nonsmoker,family history of premature coronary artery disease in his brother who has a coronary stent, resented to the hospital following a syncopal episode. According to the patient, he was standing at the sink, holding onto it tightly because he was extremely lightheaded and felt as though he would pass out. According to the , at that same time he was notably short of breath as well. Denies having any chest discomfort at the time. Shortly thereafter this patient did fall down to the ground, his was helping him and they actually both fell down to the ground. She states that when he landed his eyes were closed and he was unresponsive for a period of time.chest x-ray did not reveal any acute cardiopulmonary process.EKG shows a normal sinus rhythm with first-degree AV block and occasional PVC, nonspecific ST-T wave changes.Blood pressure on arrival 136/70, orthostatics were obtained which came back to be negative. Heart rate in the 80s, temperature 98.8, he is 94% on room air.White blood cell count 7.4, hemoglobin 13.9, platelet count 164. Sodium 141, potassium 4.3, BUN 18, creatinine 1.2.troponin 0.270.at the time of my examination, patient feels well, denies any chest pain, no difficulty in breathing, no dizziness or lightheadedness. Patient states overall he's physically active, has not taken any recent long trips and has not had any recent surgeries. 06/12/2018 D-dimer yesterday evening came back at 20.03. For that reason a CTA of the chest was performed which revealed large bilateral pulmonary emboli with evidence of right heart strain. Descending aorta aneurysmal dilated dictation noted. Venous duplex was ordered this morning, findings compatible with DVT in the right popliteal vein. Echocardiogram with Doppler study was performed which revealed an ejection fraction of 50-55%. Borderline pulmonary hypertension, RVSP measured at 35.5. No pericardial effusion. Blood pressure 104/60 with a heart rate in the 60s today, 98% on room air. Breathing is stable , he denies any chest discomfort, dizziness or lightheadedness today. He is noted on the monitor and first-degree heart block intermittently and winky block. He was also noted to have 1 pause of approximately 2 seconds noted on the monitor. 06/13/2018 Patient was seen and examined this morning, doing well, hemodynamically he is stable. Blood pressure 138/60 with a heart rate in the 60s, 97% on 2 L of oxygen. He has been on bedrest, this morning got up to the bathroom, walked back to the bed and was mildly short of breath. He was sitting up in a chair at the time of my examination. Continues to be on IV heparin. Was switched over to Xarelto this morning by primary care doctor. After noon today, we will have the patient up ambulating, monitoring his oxygen saturations closely. Plan on discharge home in 24 hours if stable. 06/14/2018 Patient was seen and examined this morning, feels well, denies any shortness of breath, he's been up ambulating without any difficulty. No dizziness or lightheadedness. Because of the unprovoked bilateral pulmonary embolism a CAT scan of the abdomen and pelvis was performed today.it revealed a nonobstructing right renal stone, GERD, small nodules may be at the posterior right lung base, these were not apparent on the CTA and may be related to atelectasis.pressure 135/60 with a heart rate in the 80s, 97% on room air. Sodium 139, potassium 4.6 , BUN 14, creatinine 1.0. Objective - Vital Signs Vital signs: Vital Signs Temp 96.8 F L 06/14/18 08:00 Pulse 85 06/14/18 08:00 Resp 18 06/14/18 08:00 BP 135/60 06/14/18 08:00 Pulse Ox 97 06/14/18 09:06 Intake & Output 06/13/18 06/14/18 06/14/18 18:59 06:59 18:59 Intake Total 476 100 120 Balance 476 100 120 Weight 77.4 kg Intake: Oral 476 100 120 Other: Voiding Method Toilet Toilet Toilet Urinal Urinal Urinal Diaper Incontinent # Voids 1 - Exam PHYSICAL EXAMINATION: GENERAL:87-year-old gentleman in no acute distress at the time of my examination HEENT: Head is atraumatic, normocephalic. Pupils equal, round. Sclera anicteric. Conjunctiva are clear. Mucous membranes of the mouth are moist. Neck is supple. There is no elevated jugular venous pressure.no carotid bruit is heard. HEART EXAMINATION: [Heart S1, S2 systolic murmur is heard.] CHEST EXAMINATION:[ Lungs are clear to auscultation and precussion. No chest wall tenderness is noted on palpation or with deep breathing.] ABDOMEN: [ Soft, nontender. Bowel sounds are heard. No organomegaly noted]. EXTREMITIES:[ 2+ peripheral pulses with no evidence of peripheral edema and no calf tenderness noted]. NEUROLOGIC [patient is awake, alert and oriented X3. - Labs CBC & Chem 7: 06/11/18 12:20 06/14/18 08:36 Labs: Abnormal Lab Results - Last 24 Hours (Table) 06/14/18 Range/Units 08:36 Glucose 138 H (74-99) mg/dL Assessment and Plan Plan: Assessment and plan #1 syncope, evidence of significant bilateral pulmonary embolism and right ventricular heart strain. #2 hypertension #3 hyperlipidemia #4 family history of premature coronary artery disease in his brother #5 hypothyroidism #6 abnormal troponin #7 sinus bradycardia with first-degree AV block and intermittent second-degree type I. #8 right popliteal DVT Plan Patient may be able to be discharged home today. We'll make him a follow-up appointment to see Dr. Pinto in the office post discharge. He will continue on Xarelto per PE protocol. We will continue to hold the verapamil as the patient is bradycardic. Blood pressure has remained stable. DNP note has been reviewed, I agree with a documented findings and plan of care. Patient was seen and examined.
[2018-06-14 12:40] VITALS: BP 155/80; PULSE 84; RESP 17
--- NOTE | 2018-06-14 16:04 | PN ---
PROGRESS NOTE DATE OF SERVICE: 06/12/2018. CHIEF COMPLAINT: Status post pulmonary embolism. HISTORY OF PRESENT ILLNESS: This gentleman is doing fairly well. He is a little bit short of breath but he has had no chest pain. PHYSICAL EXAMINATION: Chest is clear. Cardiac exam is normal. Abdomen is soft, nontender. IMPRESSION: Pulmonary emboli. PLAN: 1. Stop nitro drip. 2. Increase activity. MMODL / IJN: [id number] /
--- NOTE | 2018-06-14 16:07 | PN ---
PROGRESS NOTE Patient was to have been discharged yesterday and was kept in for some reason. I was not notified. He is apparently having a CT of the abdomen today. I am not sure why. He has no abdominal pain or any specific organ related symptoms. MMODL / IJN: [id number] /
[2018-06-14] MEDS ORDERED: FAMOTIDINE 20 MG TAB PO SCH (21:00)
== END 2018-06-14 14:07 | disposition home or self-care (01) | DRG 176 ==
LOC: EC 10:45 → 3SCARD 13:58
PROVIDERS: ADMIT Family Medicine; ATTEND Family Medicine
DX: I26.99 Other pulmonary embolism without acute cor pulmonale (principal); I82.431 Acute embolism and thrombosis of right popliteal vein; Z79.82 Long term (current) use of aspirin; Z79.890 Hormone replacement therapy; Z79.899 Other long term (current) drug therapy; K21.9 Gastro-esophageal reflux disease without esophagitis; E78.5 Hyperlipidemia, unspecified; M19.90 Unspecified osteoarthritis, unspecified site; Z85.828 Personal history of other malignant neoplasm of skin; Z85.46 Personal history of malignant neoplasm of prostate; E03.9 Hypothyroidism, unspecified; Z96.1 Presence of intraocular lens; Z96.642 Presence of left artificial hip joint; Z82.49 Family history of ischemic heart disease and other diseases of the circulatory system; Z81.1 Family history of alcohol abuse and dependence; Z82.61 Family history of arthritis; Z95.5 Presence of coronary angioplasty implant and graft; I27.20 Pulmonary hypertension, unspecified; N20.0 Calculus of kidney; I44.1 Atrioventricular block, second degree; I11.9 Hypertensive heart disease without heart failure; I71.9 Aortic aneurysm of unspecified site, without rupture; R74.8 Abnormal levels of other serum enzymes
CPT/HCPCS: 36415; 71046; 71275; 74178; 80048; 80053; 80061; 82550; 82553; 83735; 84443; 84484; 85025; 85379; 85610; 85730; 93005; 93306; 93970; 94760; 96365; 96366; 96376; 99291

== ENCOUNTER 2021-02-10 13:32 | Emergency (ER) | payer MEDICARE ==
[2021-02-10 13:45] VITALS: BP 136/65; PULSE 75; RESP 20; TEMP 98
--- NOTE | 2021-02-10 14:34 | XR ---
EXAMINATION TYPE: XR shoulder complete RT DATE OF EXAM: 02/10/2021 CLINICAL HISTORY: Pain after lifting injury TECHNIQUE: Three views of the right shoulder are obtained. COMPARISON: None. FINDINGS: There is no acute fracture/dislocation evident in the right shoulder. The acromioclavicul ar and glenohumeral joint spaces demonstrate degenerative changes. IMPRESSION: There is no acute fracture or dislocation in the right shoulder. Degenerative changes of the right acromioclavicular and glenohumeral joints, as described.
--- NOTE | 2021-02-10 14:48 | ED ---
General Adult HPI - General Chief complaint: Extremity Injury, Upper Stated complaint: shoulder pain Time Seen by Provider: 02/10/21 13:55 Source: patient, RN notes reviewed Mode of arrival: ambulatory Limitations: no limitations - History of Present Illness Initial comments: Patient is an 89-year-old male that presents to emergency department complaining of right shoulder pain after lifting a garbage bag out of the garbage bin. He notes that the baby was pretty heavily when he was lifting anything felt a sharp pain in his right shoulder. He notes that he is having difficulty raising his arm past 90 with abduction and flexion. He did not appear to be in any discomfort or pain while sitting in bed during the exam interview. He noted that he did try to call his orthopedist but noted that they can squeeze admitted 6 days. They told to come emergency room to get evaluated for significant pain. She denied any numbness tingling. He noted the pain was approximately a 5 all sitting in bed out of 10. He noted that he took extra strength Tylenol before coming in and did not want any other pain medication this time. He denied any chest pain shortness breath headache nausea vomiting diarrhea constipation fever fatigue chills. - Related Data Home Medications Medication Instructions Recorded Confirmed Furosemide [Lasix] 20 mg PO DAILY 02/03/15 06/11/18 Ranitidine HCl [Zantac] 150 mg PO BID 02/03/15 06/11/18 Levothyroxine Sodium [Synthroid] 125 mcg PO DAILY 07/17/17 06/11/18 Previous Rx's Medication Instructions Recorded Rivaroxaban [Xarelto] 15 mg PO BID-W/MEALS #60 tab 06/13/18 amLODIPine BESYLATE [Norvasc] 5 mg PO DAILY #30 tablet 06/14/18 Allergies Allergy/AdvReac Type Severity Reaction Status Date / Time No Known Allergies Allergy Verified 02/10/21 13:45 Review of Systems ROS Statement: Those systems with pertinent positive or pertinent negative responses have been documented in the HPI. ROS Other: All systems not noted in ROS Statement are negative. Past Medical History Past Medical History: GERD/Reflux, Hyperlipidemia, Hypertension, Osteoarthritis (OA), Prostate Disorder, Thyroid Disorder Additional Past Medical History / Comment(s): hx prostate cancer, hx skin cancer. pt stated has has a pne vaccine,shingles vaccine and hepatitis A vaccine but not sure of dates,lyric writer not abnle to verify date at time of admit. History of Any Multi-Drug Resistant Organisms: None Reported Past Surgical History: Prostate Surgery, Tonsillectomy Additional Past Surgical History / Comment(s): skin cancer removed from back, shelley cataracts removed-lens implants. prostatectomy,total lt hip arthroplasty Past Anesthesia/Blood Transfusion Reactions: No Reported Reaction Past Psychological History: No Psychological Hx Reported Smoking Status: Never smoker Past Alcohol Use History: Occasional Past Drug Use History: None Reported - Past Family History Mother Family Medical History: Osteoarthritis (OA) Additional Family Medical History / Comment(s): at age 92"old age" Father Additional Family Medical History / Comment(s): dad was an alcoholic he left home when pt was only 3 and a half years old General Exam Limitations: no limitations General appearance: alert, in no apparent distress Head exam: Present: atraumatic, normocephalic, normal inspection Eye exam: Present: normal appearance, PERRL, EOMI. Absent: scleral icterus, conjunctival injection, periorbital swelling Neck exam: Present: normal inspection Respiratory exam: Present: normal lung sounds bilaterally. Absent: respiratory distress, wheezes, rales, rhonchi, stridor Cardiovascular Exam: Present: regular rate, normal rhythm, normal heart sounds. Absent: systolic murmur, diastolic murmur, rubs, gallop, clicks Right Shoulder Exam: Present: normal inspection, other (positive Karon test, patient unable to hold arm at 90 abduction against gravity.). Absent: full ROM (Secondary to pain), tenderness, swelling, abrasion, laceration, ecchymosis Neurological exam: Present: alert, oriented X3 Psychiatric exam: Present: normal affect, normal mood Skin exam: Present: warm, dry, intact, normal color. Absent: rash Course Vital Signs 02/10/21 13:41 Temperature 98.0 F Pulse Rate 75 Respiratory 20 Rate Blood Pressure 136/65 O2 Sat by Pulse 99 Oximetry Medical Decision Making - Medical Decision Making 89-year-old male complaining of right shoulder pain after lifting a garbage bag out of the garbage bin. X-ray right shoulder ordered. X-ray shows no acute fractures or dislocations. Given patient's symptoms and mechanism injury most likely rotator cuff injury. Case discussed with Dr. White, patient can discharge home with follow-up to orthopedist. - Radiology Data Radiology results: report reviewed, image reviewed Right shoulder x-ray There is no acute fracture dislocation right shoulder. Degenerative change of the right acromioclavicular and glenohumeral joints, as described. Disposition Clinical Impression: Rotator cuff injury Disposition: HOME SELF-CARE Condition: Stable Instructions (If sedation given, give patient instructions): Rotator Cuff Injury (ED) Additional Instructions: Please return to the Emergency Department if symptoms worsen or any other conc erns. Wear sling throughout the day to avoid any unnecessary movement. Tylenol Motrin as needed for pain control. Follow-up with orthopedist as soon as possible. Is patient prescribed a controlled substance at d/c from ED?: No Referrals: Aly Colmenares MD [Primary Care Provider] - 1-2 days Time of Disposition: 14:48
== END 2021-02-10 15:47 | disposition home or self-care (01) ==
LOC: EC 13:32
DX: S46.001A Unspecified injury of muscle(s) and tendon(s) of the rotator cuff of right shoulder, initial encounter (principal); E78.5 Hyperlipidemia, unspecified; I10 Essential (primary) hypertension; K21.9 Gastro-esophageal reflux disease without esophagitis; M19.90 Unspecified osteoarthritis, unspecified site; E07.9 Disorder of thyroid, unspecified; Z85.46 Personal history of malignant neoplasm of prostate; Z96.642 Presence of left artificial hip joint; Z90.79 Acquired absence of other genital organ(s); X50.9XXA Other and unspecified overexertion or strenuous movements or postures, initial encounter
CPT/HCPCS: 99283